=== PATIENT | female | born 1995 ===

== ENCOUNTER 2018-01-18 20:33 | Outpatient (REF) | payer SELFPAY ==
[2018-01-18 22:15] LABS: Pregnancy, Serum, hCG Quali. NEGATIVE Negative (0-9 Nonpreg)
== END 2018-01-19 00:30 | disposition home or self-care (01) ==
LOC: EDREF 20:33
PROVIDERS: Emergency Medicine
DX: Z04.41 Encounter for examination and observation following alleged adult rape (principal)
CPT/HCPCS: 84703